=== PATIENT | female | born 1960 | race Caucasian/White ===

== ENCOUNTER 2024-08-15 15:44 | Emergency (ER) | payer BC ==
[~2024-08-15] VITALS: Ht 167.6 cm; Wt 77.1 kg
[~2024-08-15 15:44] MED LIST: AMLODIPINE5 MG PO; ASPIRIN LOW81 M1 PO; CIPROFLOXACN500 MG PO; FISH OIL1000 MG PO; MEDDOSEPAK PO; SIMVASTATIN20 MG PO; ULTRAM50 MG OR; ZITHROMAX500 MG PO
[2024-08-15 16:38] VITALS: BP 140/82
[2024-08-15 17:00] LABS: BASO% 0.5 % (0-3); EOS% 0.4 % (0-8); HEMATOCRIT 46.5 % (37.0-47.0); HEMOGLOBIN 14.4 g/dl (12.0-16.0); IMMATURE GRANULOCYTES 0.2 % (0.0-5.0); LYMPH% 17.3 % (15-41); MEAN CORPUSCULAR HGB 32.3 pG CALC (26.0-32.0); MONO% 8.1 % (2-13); NEUT# 6.77 thou/uL (2.00-7.15); NEUT% 73.5 % (42-76); RED BLOOD COUNT 4.46 mill/uL (4.20-5.60); RED CELL DISTRI WIDTH 12.9 % (11.5-15.5)
[2024-08-15 17:01] LABS: MEAN CELL VOLUME 104.3 fL CALC (80.0-100.0)
[2024-08-15 17:22] LABS: ALBUMIN 4.2 g/dL (3.2-5.0); BILIRUBIN, TOTAL 0.8 mg/dL (0.02-1.3); CREATININE 0.4 mg/dL (0.5-1.0); POTASSIUM 3.9 mmol/l (3.5-5.1); TOTAL PROTEIN 6.8 g/dL (6.3-8.2)
[2024-08-15] MEDS ORDERED: CLINDAMYCIN HY150 MG PO (17:47)
[2024-08-15] MEDS ORDERED: BACTRIM DS1 TAB PO (17:47)
[2024-08-15 18:03] VITALS: BP 140/82
== END 2024-08-15 18:14 | disposition home or self-care (01) | DRG 605 ==
LOC: ED 15:44
PROVIDERS: Nurse Practitioner
DX: S61.451A Open bite of right hand, initial encounter (principal); L03.113 Cellulitis of right upper limb; W55.01XA Bitten by cat, initial encounter; Y92.009 Unspecified place in unspecified non-institutional (private) residence as the place of occurrence of the external cause; I10 Essential (primary) hypertension; E78.00 Pure hypercholesterolemia, unspecified; F17.200 Nicotine dependence, unspecified, uncomplicated; Z88.0 Allergy status to penicillin
CPT/HCPCS: J0696